=== PATIENT | male | born 1995 | race Hispanic/Latino ===

== ENCOUNTER 2017-01-23 14:36 | Emergency (ER) | payer OTHER ==
[~2017-01-23] VITALS: Ht 177.8 cm; Wt 80.7 kg
[2017-01-23] MEDS ORDERED: TYLENOL COLD M1 EACH PO (16:36)
[2017-01-23] MEDS ORDERED: THROAT SPRAY177 ML PO (16:37)
[2017-01-23] MEDS ORDERED: TESSALON PERLE100 M1 PO (17:07)
[2017-01-23] MEDS ORDERED: MAGIC MOUTHWASH PO (17:07)
--- NOTE | 2017-01-23 17:08 | ED THROAT/DENTAL COMPLAINT ---
History of Present Illness General Chief Complaint: Sore Throat, Dental Pain Stated Complaint: SORE THROAT Source: patient Exam Limitations: no limitations Vital Signs & Intake/Output Vital Signs & Intake/Output Vital Signs Date Time Temp Pulse Resp B/P Pulse O2 O2 Flow FiO2 Ox Delivery Rate 01/23 1723 98.3 69 15 124/74 100 Room Air 01/23 1643 99 Room Air 01/23 1448 97.3 88 16 148/86 98 Room Air Allergies Coded Allergies: NO KNOWN ALLERGIES (01/23/17) Triage Note: PT STATES HE HAS HAD A SORE THROAT FOR THE PAST 3 DAYS. PT STATES HE THINKS HE HAD A FEVER 2 DAYS AGO. Triage Nurses Notes Reviewed? yes HPI: This patient is a 21-year-old male who presented to the emergency department today for evaluation of sore throat. He reported that approximately 3 days ago to getting sick. He has a nonproductive cough, sore throat, headache, and nasal congestion. The patient reported that his mom and sister were both sick with the same thing. He reported tactile fevers and no chills. The patient did have one episode of diarrhea yesterday, but no abdominal pain, nausea, or vomiting. No blood in the stool. (PEREZ BYRD PA-C) Reconcile Medications Benzonatate (Tessalon Perle) 100 MG CAPSULE 1 CAP PO TID PRN COUGH D-Methorphan/PE/Acetaminophen (Tylenol Cold Multi-Symp Caplet) 10 MG-5 MG-325 MG TABLET 2 TAB PO AD FLU LIKE SYMPTOMS (Reported) [MAGIC MOUTHWASH] 15 ML ORAL.SUSP 1-2 TSP PO TID PRN SORE THROAT SWISH AND SWALLOW 1/3 BENADRYL 1/3 MAALOX 1/3 LIDOCAINE Phenol (Throat Hellier) (Unknown Strength) SPRAY (Unknown Dose) PO AD PRN SORE THROAT (Reported) (EMILEE LIVINGSTON MD) Past History Travel History Traveled to [place] past 21 day No Medical History Any Pertinent Medical History? see below for history Surgical History Surgical History: non-contributory Psychosocial History What is your primary language Romansh Tobacco Use: Never used ETOH Use: denies use Illicit Drug Use: denies illicit drug use Family History Hx Contributory? No (PEREZ BYRD PA-C) Review of Systems Review of Systems Constitutional: Reports: see HPI. EENTM: Reports: see HPI. Respiratory: Reports: see HPI. Cardiovascular: Reports: no symptoms. GI: Reports: see HPI. Musculoskeletal: Reports: no symptoms. Skin: Reports: no symptoms. Neurological/Psychological: Reports: see HPI. All Other Systems: Reviewed and Negative (CARSON MONTANEZ,PEREZ) Physical Exam Physical Exam Mouth/Throat: mild pharyngeal injection. No oral pharyngeal lesions or edema. No tonsillar exudates or uvular shift. No mandibular or maxillary edema. No trismus or drooling. No uvular edema Comments: Well-developed well-nourished person in no acute distress HEENT: moist mucous membranes Pupils equally round and reactive to light. Nose is atraumatic. External auditory canal and Tympanic membranes clear. Neck: Supple. I lateral submandibular lymphadenopathy Back: Normal gait Cardiovascular: Regular rate and rhythms no murmurs, normal JVP Respiratory: No respiratory distress. Breath sounds clear to auscultation bilaterally Extremity: Normal and equal pulses Neuro: Alert oriented x3, cranial nerves II through XII grossly intact. Skin: No appreciable rash on exposed skin, skin is warm and dry. Psych: Mood and affect is normal Core Measures ACS in differential dx? No Severe Sepsis Present: No Septic Shock Present: No (PEREZ BYRD PA-C) Progress Differential Diagnosis: aspirated tooth, carious tooth, epiglottitis, Ludwigs angina, meningitis, odontogenic abscess, janie-tonsillar abscess, pharyngeal for. body, stomatitis/gingivitis, strep pharyngitis, tooth fracture Plan of Care: Orders Procedure Date/time Status THROAT CULTURE W/QUICK STREP 01/23 1451 Active Departure Departure Disposition: HOME OR SELF CARE Condition: Stable Clinical Impression Primary Impression: Viral pharyngitis Referrals: UNKNOWN (PCP/Family) Additional Instructions: Use Magic mouthwash as directed: Swish and swallow. Take Tessalon Perles as prescribed for cough. [id number] Tylenol or Motrin for fevers. Please rest and be sure to stay hydrated. Return for any worsening symptoms or concerns. Departure Forms: Customer Survey General Discharge Information Prescriptions: Current Visit Scripts [MAGIC MOUTHWASH] 1-2 TSP PO TID PRN SORE THROAT #150 ML SWISH AND SWALLOW 1/3 BENADRYL 1/3 MAALOX 1/3 LIDOCAINE Benzonatate (Tessalon Perle) 1 CAP PO TID PRN COUGH #12 CAP (CARSON MONTANEZ,PEREZ) PA/OIL WELL PERFORATOR OPERATOR Co-Sign Statement Statement: ED Attending supervision documentation- [] I saw and evaluated the patient. I have also reviewed all the pertinent lab results and diagnostic results. I agree with the findings and the plan of care as documented in the PA's/OIL WELL PERFORATOR OPERATOR's documentation. x I have reviewed the ED Record and agree with the PA's/OIL WELL PERFORATOR OPERATOR's documentation. [] Additions or exceptions (if any) to the PAs/OIL WELL PERFORATOR OPERATOR's note and plan are summarized below: [] (MIKI BURCIAGA,EMILEE)
[2017-01-23 17:23] VITALS: BP 124/74
== END 2017-01-23 17:24 ==
LOC: ERH 14:36
DX: J02.8 Acute pharyngitis due to other specified organisms (principal)